=== PATIENT | male | born 1950 ===

== ENCOUNTER 2017-06-03 10:35 | Emergency (ER) | payer BC ==
[~2017-06-03] VITALS: Ht 170.2 cm; Wt 59.0 kg
[2017-06-03 10:38] VITALS: BP 147/90; PULSE 78; RESP 17; TEMP 98.2; O2SAT 98
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
[2017-06-03 11:08] VITALS: BP 167/99; PULSE 71; RESP 16; O2SAT 100
[2017-06-03 12:12] LABS: AUTOMATED NEUTROPHIL # 6.3 TH/MM3 (1.8-7.7); BASOPHIL % 0.4 % (0.0-2.0); EOSINOPHIL # 0.1 TH/MM3 (0-0.4); EOSINOPHIL % 0.7 % (0.0-4.0); HEMATOCRIT 38.6 % (39.0-51.0); HEMOGLOBIN 13.1 GM/DL (13.0-17.0); LYMPH % 13.1 % (9.0-44.0); MEAN CELL VOLUME 90.4 FL (80.0-100.0); MEAN CORPUSCULAR HEMOGLOBIN 30.8 PG (27.0-34.0); MEAN CORPUSCULAR HGB CONC 34.1 % (32.0-36.0); MEAN PLATELET VOLUME 8.2 FL (7.0-11.0); MONO % 5.7 % (0.0-8.0); MONOCYTE # 0.4 TH/MM3 (0-0.9); NEUT % 80.1 % (16.0-70.0); PLATELET COUNT 196 TH/MM3 (150-450); RED BLOOD COUNT 4.27 MIL/MM3 (4.50-5.90); WHITE BLOOD COUNT 7.8 TH/MM3 (4.0-11.0)
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
[2017-06-03] MEDS ORDERED: SODIUM CHLOR 0.9% 1000 ML INJ 1,000 ML IV ONE (12:30)
[2017-06-03 12:32] LABS: BICARBONATE 24.8 MEQ/L (21.0-32.0); CALCIUM 8.6 MG/DL (8.5-10.1); CREATININE 0.89 MG/DL (0.60-1.30)
== END 2017-06-03 13:48 | disposition home or self-care (01) ==
LOC: NEPE 10:35
DX: F07.81 Postconcussional syndrome (principal); R26.81 Unsteadiness on feet; W22.8XXA Striking against or struck by other objects, initial encounter
CPT/HCPCS: 70450; 80048; 85025; 85610; 85730; 99284; J7030

== ENCOUNTER 2017-12-16 18:54 | Emergency (ER) | payer BC ==
[2017-12-17] MEDS: amLODIPine BESYLATE 5 MG TAB PO (00:09)
[2017-12-17] MEDS: ACETAMINOPHEN 325 MG TAB PO (00:09)
== END 2017-12-17 00:32 | disposition home or self-care (01) ==
LOC: NEPD 12-17 00:32
DX: S09.90XA Unspecified injury of head, initial encounter (principal); W22.8XXA Striking against or struck by other objects, initial encounter
CPT/HCPCS: 70450; 99283